=== PATIENT | male | born 1980 | race Caucasian/White ===

== ENCOUNTER 2017-08-06 08:03 | Emergency (ER) | payer OTHER ==
[2017-08-06 08:14] VITALS: BP 117/80
--- NOTE | 2017-08-06 09:29 | UC ---
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 has issues with sinuses. was forme cocaine addict and thinks he messed up his sinuses. + runny nose. no sinus pain. no fevers. stopped smoking 5 days ago. staopped chantix and straterra recently b/c dry moth. no cough. + fatigue. - History of Current Complaint Chief Complaint: UCRespiratory Stated Complaint: SORE THROAT Time Seen by Provider: 08/06/17 08:56 - Allergies/Home Medications Allergies/Adverse Reactions: Allergies Allergy/AdvReac Type Severity Reaction Status Date / Time No Known Allergies Allergy Verified 08/06/17 08:14 Home Medications: Home Medications Ibuprofen TAB* [Motrin TAB* 600 MG] 600 mg PO Q6H PRN 08/06/17 [History Confirmed 08/06/17] Strettera 1 tab PO DAILY 08/06/17 [History Confirmed 08/06/17] Varenicline (NF) [Chantix 1 MG TAB (NF)] 1 mg PO BID 08/06/17 [History Confirmed 08/06/17] PMH/Surg Hx/FS Hx/Imm Hx Previously Healthy: Yes Psychological History: Anxiety - Surgical History Surgical History: None - Family History Known Family History: Positive: Diabetes - Social History Alcohol Use: None Substance Use Type: None Smoking Status (MU): Former Smoker Type: Cigarettes Amount Used/How Often: 1 PPD When Did the Patient Quit Smoking/Using Tobacco: one week Review of Systems Constitutional: Fatigue Skin: Negative Eyes: Negative ENT: Sore Throat - mild, scratchy, Nasal Discharge Respiratory: Negative Cardiovascular: Negative Gastrointestinal: Negative Genitourinary: Negative Motor: Negative Neurovascular: Negative Musculoskeletal: Negative Neurological: Negative Psychological: Negative Is Patient Immunocompromised?: No All Other Systems Reviewed And Are Negative: Yes Physical Exam Triage Information Reviewed: Yes Appearance: Ill-Appearing - appears tired Vital Signs: Initial Vital Signs Temp 98.3 F 08/06/17 08:08 Pulse 83 08/06/17 08:08 Resp 24 08/06/17 08:08 BP 117/80 08/06/17 08:08 Vital Signs Reviewed: Yes Eye Exam: Normal ENT: Positive: Hearing grossly normal, Pharyngeal erythema, Nasal congestion, Nasal drainage, TMs normal. Negative: TM bulging, TM dull, TM red, Tonsillar swelling, Tonsillar exudate Dental Exam: Normal Neck exam: Normal Neck: Positive: Supple, Nontender, No Lymphadenopathy Respiratory Exam: Normal Respiratory: Positive: Lungs clear, Normal breath sounds, No respiratory distress, No accessory muscle use Cardiovascular Exam: Normal Cardiovascular: Positive: RRR, No Murmur, Pulses Normal Abdominal Exam: Normal Abdomen Description: Positive: Nontender, Soft Musculoskeletal Exam: Normal Neurological Exam: Normal Psychological Exam: Normal Skin Exam: Normal Throat Pain/Nasal Course/Dx - Course Course Of Treatment: URI. rapid strep neg. saline lavage. h/o cocaine abuse. clean since 2008. check CBC and mono d/t fatigue - Differential Dx/Diagnosis Differential Diagnosis/HQI/PQRI: Laryngitis, Mononucleosis, Pharyngitis, Tonsillitis, URI Provider Diagnoses: URI Discharge - Discharge Plan Condition: Stable Disposition: HOME Patient Education Materials: Upper Respiratory Infection (ED) Referrals: Brando Rosario MD [Primary Care Provider] - Additional Instructions: You can buy something called a netti pot or sinus rinse kit that we talked about to help your sinus congestion. you can use it daily to help prevent sinus infections and build up. we are testing you for mono b/c of the ST and fatigue.
[2017-08-06 14:28] LABS: EBV Response NO
[2017-08-06 14:40] LABS: Hematocrit 47 % (42-52); Hemoglobin 15.5 g/dl (14.0-18.0); Mean Corpuscular HGB Conc 33 g/dl (31-36); Mean Corpuscular Hemoglobin 30 pg (27-31); Mean Corpuscular Volume 89 fL (80-94); Mean Platelet Volume 9 um3 (7.4-10.4); Red Blood Count 5.22 10^6/ul (4.0-5.4); Red Cell Distribution Width 14 % (10.5-15); White Blood Count 6.5 10^3/ul (3.5-10.8)
[2017-08-06 14:46] LABS: Mono Internal Control QC Line Present
== END 2017-08-06 09:52 | disposition home or self-care (01) ==
LOC: UCCORT 08:03
DX: J06.9 Acute upper respiratory infection, unspecified (principal); Z87.891 Personal history of nicotine dependence
CPT/HCPCS: 36415; 85025; 86308; 87651; 99211; G0463